=== PATIENT | female | born 1980 | race Caucasian/White ===

== ENCOUNTER 2021-01-25 09:14 | Outpatient (CLI) | payer OTHER, SELFPAY | END 2021-01-25 09:15 | disposition home or self-care (01) | LOC: ANHBWCAUD 09:17 | PROVIDERS: PCP Family Medicine; Visit Provider Family Medicine | DX: H90.3 Sensorineural hearing loss, bilateral (principal) | CPT/HCPCS: 92557; 92567 ==

== ENCOUNTER 2021-03-15 10:00 | Outpatient (RCR) | payer OTHER, SELFPAY | END 2021-05-30 23:59 | disposition home or self-care (01) | LOC: ANHBWCAUD 10:00 | PROVIDERS: PCP Family Medicine; Visit Provider Family Medicine | DX: Z46.1 Encounter for fitting and adjustment of hearing aid (principal) | CPT/HCPCS: 99199; V5160; V5261 ==

== ENCOUNTER 2022-01-15 07:11 | Outpatient (RCR) | payer OTHER, SELFPAY | END 2022-04-15 23:59 | disposition home or self-care (01) | LOC: ANHBWCAUD 07:11 | PROVIDERS: PCP Family Medicine; Visit Provider Family Medicine | DX: Z46.1 Encounter for fitting and adjustment of hearing aid (principal) | CPT/HCPCS: 99199 ==

== ENCOUNTER 2023-02-12 08:55 | Outpatient (CLI) | payer OTHER, SELFPAY | END 2023-02-12 08:56 | disposition home or self-care (01) | LOC: ANHBWCAUD 08:56 | PROVIDERS: PCP Family Medicine; Visit Provider Family Medicine | DX: H90.3 Sensorineural hearing loss, bilateral (principal) | CPT/HCPCS: 92557; 92567 ==

== ENCOUNTER 2024-06-06 16:44 | Emergency (ER) | payer OTHER, SELFPAY ==
[2024-06-06 16:52] VITALS: BP 147/97; PULSE 139; RESP 20; TEMP 36.5; O2SAT 100
--- NOTE | 2024-06-06 17:10 | ED.SKABFB ---
HPI - Skin/Abscess/Foreign Bdy General Stated complaint: lump on right chest/fever/headache History of Present Illness HPI narrative: Patient presents for evaluation of increased confusion and abscess to right chest area. Patient states 9 days ago she was started on cephalexin and Bactrim by her primary care provider diagnosed with an abscess to her right chest area. Patient states that area has gotten larger in size and more painful to touch. Patient states she has been running a fever at home and takes Tylenol routinely to keep her fever normal. Sister accompanies patient in states patient has had increased confusion and fever at home. Patient states she did mistakenly forget to take her medication this morning that she takes on a routine basis for bipolar. Patient is very upset that no one has listen to her and her complaints patient has been evaluated [facility] emergency room and [facility] Emergency Room for same symptoms. Patient states she was asked to leave from [facility] ER that there were no bid beds available for admission. Says patient tearful at this urgent care visit states she is confused feels diaphoretic and clammy at times. Sister accompanies patient states she is very concerned for her sister's well-being. Related Data Allergies Allergy/AdvReac Type Severity Reaction Status Date / Time bee venom protein (honey bee) Allergy Severe Anaphylactic Verified 06/06/24 17:08 [bees] Shock iohexol Allergy Unknown Verified 06/06/24 17:18 [From contrast - CT, X-RAY] amoxicillin AdvReac Abdominal Verified 06/06/24 17:09 Pain Review of Systems Review of Systems: CONSTITUTIONAL: Denies fever, chills, or sweats. EYES: Denies visual changes, redness, or discharge. ENT: Denies rhinorrhea, congestion, sore throat, or otalgia. CARDIOVASCULAR: Denies chest pain, palpitations, or edema. RESPIRATORY: Denies cough or dyspnea. Patient states she feels short of breath at times has increased pain with inspiration patient reports increasing size in tenderness to area to right chest area. No drainage or no streaking GASTROINTESTINAL: Denies abdominal pain, nausea, vomiting, or diarrhea. GENITOURINARY: Denies dysuria or hematuria. SKIN: Denies rash or itching. MUSCULOSKELETAL: Denies back pain, joint pain, or myalgia. NEUROLOGIC: Denies headache, numbness, or weakness. PSYCHIATRIC: Denies anxiety or depression. PMFSH Comments At time of signature, agree with nursing past medical, surgical, social and family history. There is no relevant family history pertinent to the presenting complaint Exam Narrative: GENERAL: Well-appearing, well-nourished, and in no acute distress. HEAD: Normocephalic, atraumatic. EYES: PERRLA and EOMI. ENT: Nares clear, no rhinorrhea or epistaxis. Mucous membranes moist. NECK: Supple. CHEST: Clear to auscultation. No respiratory distress. Lungs clear no wheezing noted no rales or rhonchi noted respirations even and nonlabored patient does report pain with inspiration on the right side right upper lung base HEART: Regular rate and rhythm. No murmur heard. Normal peripheral pulses. ABDOMEN: Soft, nontender, nondistended, normal active bowel sounds. EXTREMITIES: Normal range of motion. No edema. SKIN: Warm, dry, no rash. Right chest area 3 cm wide by 2 cm area patient states is tender to touch slight swelling to area. No redness noted not warm to touch no streaking no drainage noted. NEURO: No focal deficits. Alert and oriented x3. Summer Coma Scale Eye Opening: Spontaneous 4 Summer Coma Scale Motor: Obeys Commands 6 Summer Coma Scale Verbal: Oriented 5 [place] Coma Scale Total 15 Course Course Level of Care: Express Care Visit Vital Signs Vital signs: Vital Signs Temperature 36.5 C 06/06/24 16:52 Pulse Rate 139 H 06/06/24 16:52 Respiratory Rate 20 06/06/24 16:52 Blood Pressure 147/97 H 06/06/24 16:52 Pulse Oximetry 100 06/06/24 16:52 Oxygen Delivery
[2024-06-06 17:20] VITALS: BP 147/97; PULSE 139; RESP 20; TEMP 36.5; O2SAT 100
== END 2024-06-06 17:10 | disposition short-term general hospital (02) ==
PROVIDERS: Emergency Provider Nurse Practitioner Family; PCP Family Medicine
DX: R41.0 Disorientation, unspecified (principal); R50.9 Fever, unspecified; R07.1 Chest pain on breathing
CPT/HCPCS: 99213; G0463

== ENCOUNTER 2024-06-06 18:00 | Emergency (ER) | payer OTHER, SELFPAY ==
--- NOTE | ~2024-06-06 | CT_ITS ---
EXAMINATION: CT brain wo con DATE: 06/06/2024 21:46 INDICATION: Altered mental status TECHNIQUE: Computed tomography (CT) of the head was performed without intravenous contrast. The mA wa s adjusted according to patient size. Iterative reconstruction technique was employed. Exam dose: 60 5.33 mGy-cm total exam DLP. COMPARISON: None FINDINGS: No intracranial mass lesion or hemorrhage or cerebrovascular accident. No midline shift or mass effect. Normal reddy-white matter differentiation. Normal ventricular size. No subdural or epidural hematoma. The orbital contents are unremarkable. No fracture or bone destruction of the cranial vault. Nearly complete opacification of the left maxillary sinus. The remaining paranasal sinuses and mastoi d air cells are normally developed and aerated. IMPRESSION: No significant intracranial abnormality Nearly complete opacification of left maxillary sinus Reviewed, dictated and finalized at [facility] Reviewed, dictated and finalized at [facility].
--- NOTE | ~2024-06-06 | CT_ITS ---
EXAMINATION: CT chest abdomen pelvis wo con DATE: 06/06/2024 21:47 INDICATION: Chest wall swelling, fever TECHNIQUE: Computed tomography (CT) of the chest, abdomen, and pelvis was performed without intraveno us contrast. Automated exposure control and iterative reconstruction technique were employed. Exam do se: 1802.71 mGy-cm total exam DLP. COMPARISON: None FINDINGS: CHEST CT: There is asymmetric soft tissue swelling of the right pectoralis major and pectoralis minor muscles w ith subcutaneous emphysema of the pectoralis minor muscle. There is fat stranding around the thrombus muscles. Normal heart size. No pericardial or pleural effusion. No hilar or mediastinal mass lesion or lymphad enopathy. No thoracic aortic aneurysm. Right foramen of [place] fat-containing hernia. No pulmonary infiltrate or consolidation. ABDOMEN/PELVIS CT: The liver, gallbladder, bile ducts, spleen, pancreas, pancreatic duct, and adrenal glands and kidneys are unremarkable. No urinary tract calculus or hydroureteronephrosis. The urinary bladder, uterus an d adnexal areas are unremarkable except for retroverted uterus. Normal caliber of the abdominal aorta. No intraperitoneal or retroperitoneal or pelvic mass lesion or adenopathy or ascites. A metallic foreign body of undetermined significance is situated between the posterior body of the ut erus and the distal sigmoid colon. Occasional diverticula of the colon; no CT evidence of diverticulitis. No bowel obstruction or intraperitoneal free air. Small fat-containing umbilical hernia. Old right rib fractures. No suspicious osteolytic or osteoblastic lesions are noted. IMPRESSION: Asymmetric soft tissue swelling of the right pectoralis major and pectoralis minor muscl es and subcutaneous emphysema of the right pectoralis minor muscle, with surrounding fat stranding, s uggesting infection Mild colonic diverticulosis; no evidence of diverticulitis Reviewed, dictated and finalized at [facility] Reviewed, dictated and finalized at [facility]. IMPRESSION: Asymmetric soft tissue swelling of the right pectoralis major and pectoralis minor muscles and subcutaneous emphysema of the right pectoralis min or muscle, with surrounding fat stranding, suggesting infection Mild colonic diverticulosis; no evidence of diverticulitis
[2024-06-06 18:19] VITALS: BP 144/83; PULSE 137; RESP 18; TEMP 36.4; O2SAT 99
--- NOTE | 2024-06-06 18:21 | ECG_ITS ---
Test Date: 2024-06-06 18:38:58 Measurements Intervals [place] Rate: 121 P: 41 MS: 100 QRS: 59 QRSD: 93 T: 57 QT: 292 QTc: 415 Interpretive Statements SINUS TACHYCARDIA WITH SHORT MS INTERVAL BASELINE ARTIFACT- I, II, III, AVR, AVL, AVF, V1 ABNORMAL ECG No previous ECG available for comparison Electronically Signed On 06-06-2024 19:30:09 CDT by Darvin May D.O.
[2024-06-06 18:41] LABS: Basophils Absolute Auto 0.1 K/mm3 (0.0-0.1); Basophils Percent Auto 0.6 % (0.2-1.2); Eosinophils Absolute Auto 0.3 K/mm3 (0-0.3); Eosinophils Percent Auto 1.2 % (0-4.4); Hematocrit 37.1 % (37.0-47.0); Hemoglobin 12.2 g/dL (12.0-15.0); Immature Granulocyte Absolute 0.86 K/mm3 (0.00-0.031); Immature Granulocyte Percent A 3.5 % (0-0.5); Lymphocytes Absolute Auto 2.86 K/mm3 (0.9-3.2); Lymphocytes Percent Auto 11.6 % (18.3-44.2); Mean Corpuscular HGB Conc 32.9 g/dl (32-36); Mean Corpuscular Hemoglobin 32.9 pg (26-34); Mean Platelet Volume 8.3 fl (7.4-10.4); Monocytes Percent Auto 8.1 % (2.6-8.5); Neutrophils Absolute Auto 18.4 K/mm3 (1.3-6.7); Platelet Count Result 862 k/mm3 (150-375); Red Blood Count 3.71 M/mm3 (4.2-5.4); Red Cell Distribution Width 17.2 % (11.5-14.5); White Blood Count 24.6 K/mm3 (4.5-10.0)
[2024-06-06 18:44] LABS: BEDSIDEPREGUCG Negative (Negative)
[2024-06-06 18:47] LABS: Add Urine Microscopic? NO; Appearance Urine Clear (Clear); Bilirubin Urine Negative (Negative); Blood Urine Negative (Negative); Color Urine Yellow (Yellow); Glucose Urine UA Negative (Negative); Ketones Urine Negative (Negative); Leukocyte Esterase Ur Negative LEU/UL (Negative); Nitrate Urine Negative (Negative); Protein Urine Negative (Negative); Specific Grav Ur 1.004 (1.001-1.035); Urobilinogen Urine 0.2 mg/dL (<2.0); pH Urine 6.5 (5.0-9.0)
[2024-06-06 18:51] LABS: Prothrombin Time 13.8 Seconds (11.1-14.7)
[2024-06-06 18:52] LABS: Partial Thromboplastin Time 47.5 Seconds (22.3-36.8)
[2024-06-06 18:53] LABS: Alanine Aminotransferase 22 U/L (6-35); Albumin Level 3.7 g/dL (3.5-5.1); Alkaline Phosphatase 125 U/L (38-126); Anion Gap 10 mmol/L (4-12); Aspartate Amino Transferase 30 U/L (14-36); Bilirubin,Total 0.3 mg/dL (0.2-1.3); Blood Urea Nitrogen 10 mg/dL (7-17); Calcium 9.8 mg/dL (8.4-10.2); Carbon Dioxide 23 mmol/L (22-30); Chloride 100 mmol/L (98-107); Estimated CRCL calculation 87 ml/min; Estimated Glomerular Filt Rate > 60; Glucose 92 mg/dL (65-110); Sodium 133 mmol/L (137-145)
[2024-06-06] MEDS: SODIUM CHLORIDE 0.9% IV 1,000 ML 999 ML IV CONT (20:58)
[2024-06-06] MEDS: ONDANSETRON INJ 4 MG/2 ML VIAL IV PUSH (20:59)
[2024-06-06] MEDS: MORPHINE SULFATE (*CRX) 4 MG/ML INJ IV PUSH (20:59)
[2024-06-06 21:02] LABS: Ethanol < 10 mg/dL (<10)
[2024-06-06 21:15] LABS: Troponin I < 0.012 ng/mL (0.000-0.034)
[2024-06-06 21:17] LABS: Amphetamine Screen Urine Negative (Negative); Barbiturate Screen Urine Negative (Negative); Benzodiazepines Screen Urine Negative (Negative); Cannabinoid Screen Urine Positive (Negative); Cocaine Screen Urine Negative (Negative); Methadone Screen Urine Negative (Negative); Opiate Screen Urine Negative (Negative); Phencyclidine Screen Urine Negative (Negative)
[2024-06-06 21:19] LABS: CRP 19.4 mg/dL (<1.0); Erythrocyte Sedimentation Rate 63 mm/hr (0-20); Lipase 48 U/L (23-300); Magnesium 2.2 mg/dL (1.6-2.3)
[2024-06-06 21:19] LABS: Procalcitonin 0.1 ng/mL
[2024-06-06 21:23] VITALS: PULSE 115; O2SAT 98
--- NOTE | 2024-06-06 21:26 | PC.NURSE ---
Large raised area to right upper chest that extends to right upper breast. No open areas noted, slight tenderness upon palp.
[2024-06-06] MEDS: NICOTINE (*PBKC) 21 MG PATCH 1 PATCH TRANSDERM (21:56)
[2024-06-06 21:57] VITALS: BP 145/85; PULSE 107; RESP 20; O2SAT 97
--- NOTE | 2024-06-06 22:14 | ED.GENADULT ---
HPI - General Adult General Chief complaint: Altered Mental Status Stated complaint: Lump on chest Time Seen by Provider: 06/06/24 20:21 History of Present Illness HPI narrative: Patient is a 43-year-old female who presents emergency department with chief complaint not feeling well patient reports that she was in the hospital and Javad recently had an IV infiltrate in her left upper extremity and reports that she has noticed a area of swelling on her anterior chest patient reports she saw her primary care provider he started her on Keflex and Bactrim the patient reports that the area is continued to swell she has been running fevers and not feeling well the patient states she does feels a little off the patient states [facility] studies done but never got back into her room and left without completing service is at that facility patient cited to come in today after she has noticed that the anterior chest wall continues to swell Related Data Home Medications Medication Instructions Recorded Confirmed albuterol sulfate 1.25 mg/3 mL 1.25 mg inhalation Q4H 06/06/24 06/06/24 solution for nebulization albuterol sulfate 90 mcg/actuation 2 puff inhalation QID PRN sob 06/06/24 06/06/24 aerosol inhaler budesonide-formoterol HFA 160 2 puff inhalation BID 06/06/24 06/06/24 mcg-4.5 mcg/actuation aerosol inhaler (Symbicort) buspirone 10 mg tablet 10 mg PO BID 06/06/24 06/06/24 cephalexin 500 mg tablet 500 mg PO Q6H 06/06/24 06/06/24 chlordiazepoxide HCl 25 mg capsule See Rx Instructions .Route .COMPLEX 06/06/24 06/06/24 cyclobenzaprine 10 mg tablet See Rx Instructions .Route .COMPLEX 06/06/24 06/06/24 dupilumab 300 mg/2 mL subcutaneous See Rx Instructions .Route .COMPLEX 06/06/24 06/06/24 pen injector (Dupixent) ergocalciferol (vitamin D2) 1,250 1,250 mcg PO WEEKLY 06/06/24 06/06/24 mcg (50,000 unit) capsule fluticasone propionate 50 1 spray intranasal BID 06/06/24 06/06/24 mcg/actuation nasal spray,suspension folic acid 1 mg tablet 1 mg PO DAILY 06/06/24 06/06/24 gabapentin 300 mg capsule 300 mg PO TID 06/06/24 06/06/24 lamotrigine 150 mg tablet 150 mg PO HS 06/06/24 06/06/24 meloxicam 15 mg tablet 15 mg PO DAILY 06/06/24 06/06/24 paroxetine HCl 40 mg tablet 40 mg PO DAILY 06/06/24 06/06/24 potassium chloride 20 mEq 20 meq PO BID 06/06/24 06/06/24 tablet,extended release(part/cryst) (Klor-Con M) sennosides 8.6 mg tablet (senna) 8.6 mg PO HS PRN Constipation 06/06/24 06/06/24 sulfamethoxazole 800 1 tablet PO BID 06/06/24 06/06/24 mg-trimethoprim 160 mg tablet ziprasidone HCl 80 mg capsule 80 mg PO BID 06/06/24 06/06/24 Allergies Allergy/AdvReac Type Severity Reaction Status Date / Time bee venom protein (honey bee) Allergy Severe Anaphylactic Verified 06/06/24 18:03 [bees] Shock iohexol Allergy Hives Verified 06/06/24 18:03 [From contrast - CT, X-RAY] amoxicillin AdvReac Abdominal Verified 06/06/24 18:03 Pain Review of Systems Review of Systems: A 10 system review of systems was completed on the patient and is negative except for what is stated in the HPI. Nursing and ancillary documentation was reviewed. Exam Narrative: GENERAL: Well-appearing, well-nourished, and in no acute distress. HEAD: Normocephalic, atraumatic. EYES: PERRLA and EOMI. ENT: Nares clear, no rhinorrhea or epistaxis. Mucous membranes moist. NECK: Supple. CHEST: Clear to auscultation. No respiratory distress. Tenderness to palpation in the anterior chest wall on the right with swelling present no crepitance present no necrotic tissue HEART: Regular rate and rhythm. No murmur heard. Normal peripheral pulses. ABDOMEN: Soft, nontender, nondistended, normal active bowel sounds. EXTREMITIES: Normal range of motion. No edema. SKIN: Warm, dry, no rash. NEURO: No focal deficits. Alert and oriented x3. PSYCH: Normal mood and affect. Course Vital Signs Vital signs: Vital Signs
[2024-06-06] MEDS: CLINDAMYCIN 900 MG/D5W 50 ML 900 MG/50 ML PIGGYBACK 50 MG IVPB (22:33)
--- NOTE | 2024-06-06 22:33 | PC.NURSE ---
Dr. Patricia at bedside informing pt she will need transferred to larger facility. Pt requesting [facility]
[2024-06-06] MEDS: HYDROmorphone HCL INJ (*CRX) 1 MG/ML SYR IV PUSH (23:09)
[2024-06-06] MEDS: MEROPENEM 1 GM/NS 100 ML 1 GM/100 ML BAG IVPB (23:15)
[2024-06-06 23:23] VITALS: BP 133/89; PULSE 121; RESP 16; TEMP 37; O2SAT 95
[2024-06-06 23:25] VITALS: BP 133/89; PULSE 122; RESP 21; O2SAT 97
--- NOTE | 2024-06-06 23:25 | PC.NURSE ---
Pt c/o muscle spasm to right posterior shoulder & pain 8. Medicated as ordered & ice pack to posterior shoulder.
[2024-06-06 23:31] VITALS: BP 129/99; PULSE 122; RESP 13; O2SAT 96
[2024-06-07] MEDS: VANCOMYCIN 1,250 MG/NS 250 ML 1,250 MG/250 ML BAG 166.67 MG IVPB (00:07)
[2024-06-07] MEDS: HYDROmorphone HCL INJ (*CRX) 1 MG/ML SYR IV PUSH (00:44)
== END 2024-06-07 00:57 | disposition short-term general hospital (02) ==
PROVIDERS: Emergency Medicine; Emergency Provider Emergency Medicine; PCP Family Medicine
DX: L02.213 Cutaneous abscess of chest wall (principal); D72.829 Elevated white blood cell count, unspecified; Z79.899 Other long term (current) drug therapy; R00.0 Tachycardia, unspecified; K57.90 Diverticulosis of intestine, part unspecified, without perforation or abscess without bleeding
CPT/HCPCS: 36415; 70450; 71250; 74176; 80053; 80307; 81003; 81025; 83605; 83690; 83735; 84145; 84484; 85025; 85610; 85652; 85730; 86140; 87040; 93005; 96361; 96365; 96367; 96375; 99285; A9270; J1170; J2185; J2270; J2405; J3370; J7030

== ENCOUNTER 2024-08-05 15:00 | Emergency (ER) | payer OTHER, SELFPAY ==
--- NOTE | ~2024-08-05 | CT_ITS ---
EXAMINATION: CT chest abdomen pelvis wo con DATE: 08/05/2024 21:11 INDICATION: Right chest swelling and erythema. TECHNIQUE: Computed tomography (CT) of the chest, abdomen, and pelvis was performed without intraveno us contrast. Automated exposure control and iterative reconstruction technique were employed. The dos e-length product was 1337.02 mGy-cm. COMPARISON: CT chest, abdomen, and pelvis 06/06/2024 FINDINGS: CHEST CT: There is mild emphysema. There is mild scarring at the lung apices. No pleural effusion. The heart si ze is normal. No pericardial effusion. There is soft tissue swelling around right sternoclavicular andrés int. There are no other erosions of head of right clavicle. There is thickening and adjacent right pe ctoralis major muscle with surrounding fat stranding. ABDOMEN/PELVIS CT: The liver, gallbladder, spleen, pancreas, adrenal glands, and kidneys are normal. There is no urolith iasis. There is diverticulosis of the colon without evidence of diverticulitis. There are no dilated loops of bowel. There are changes of appendectomy. There are no pathologically enlarged lymph nodes. There is no free intraperitoneal fluid. IMPRESSION: 1. Septic arthritis of right sternoclavicular joint and myositis involving right pectoralis major. Reviewed, dictated and finalized at location A. IMPRESSION: 1. Septic arthritis of right sternoclavicular joint and myositis involving righ t pectoralis major.
[2024-08-05 15:38] VITALS: BP 116/78; PULSE 114; RESP 20; TEMP 36.3; O2SAT 98
[2024-08-05 18:53] VITALS: BP 107/71; PULSE 89; RESP 18; TEMP 36.9; O2SAT 100
--- NOTE | 2024-08-05 20:29 | ED_ITS ---
HPI - General Adult General Chief complaint: Unspecified <BAILEY Canchola Last Filed: 08/07/24 02:14> Stated complaint: LUMPS ON MY CHEST <BAILEY Canchola Last Filed: 08/07/24 02:14> Time Seen by Provider: 08/05/24 20:12 <BAILEY Canchola Last Filed: 08/07/24 02:14> Source: patient and old records reviewed <BAILEY Canchola Last Filed: 08/07/24 02:14> Mode of arrival: ambulatory <BAILEY Canchola Last Filed: 08/07/24 02:14> Limitations: no limitations <BAILEY Canchola Last Filed: 08/07/24 02:14> History of Present Illness HPI narrative: Patient is a 43-year-old female who presents the ED with report of swelling to her right chest. Patient reports she was seen in the ED here in May and diagnosed with a infection within her chest wall muscles. She was transferred to [facility] at that time. She underwent surgical debridement and had a chest drainage tube. Diagnosed with MRSA. States she had been on Bactrim for approximately 2 months, but has recently finished this and been cleared by her surgeon at [facility]. States over the past 4-5 days, she has had increased swelling and pain throughout her right anterior chest wall, which feels similar to what she experienced previously. Reports she has had intermittent fevers over the last few days. Has been taking Tylenol for the pain without much improvement. Denies shortness of breath. <BAILEY Canchola Last Filed: 08/07/24 02:14> Related Data Home medications: Home Medications Medication Instructions Recorded Confirmed albuterol sulfate 1.25 mg/3 mL 1.25 mg inhalation Q4H 06/06/24 06/06/24 solution for nebulization albuterol sulfate 90 mcg/actuation 2 puff inhalation QID PRN sob 06/06/24 08/06/24 aerosol inhaler budesonide-formoterol HFA 160 2 puff inhalation BID 06/06/24 08/06/24 mcg-4.5 mcg/actuation aerosol inhaler (Symbicort) buspirone 10 mg tablet 15 mg PO BID 06/06/24 08/06/24 cephalexin 500 mg tablet 500 mg PO Q6H 06/06/24 06/06/24 chlordiazepoxide HCl 25 mg capsule See Rx Instructions .Route .COMPLEX 06/06/24 06/06/24 cyclobenzaprine 10 mg tablet 10 mg PO TID PRN Muscle Spasm 06/06/24 08/06/24 dupilumab 300 mg/2 mL subcutaneous See Rx Instructions .Route .COMPLEX 06/06/24 08/06/24 pen injector (ZipzoomixZenDoc) ergocalciferol (vitamin D2) 1,250 1,250 mcg PO WEEKLY 06/06/24 06/06/24 mcg (50,000 unit) capsule fluticasone propionate 50 1 spray intranasal BID 06/06/24 06/06/24 mcg/actuation nasal spray,suspension folic acid 1 mg tablet 1 mg PO DAILY 06/06/24 06/06/24 gabapentin 300 mg capsule 300 mg PO TID 06/06/24 08/06/24 lamotrigine 150 mg tablet 150 mg PO HS 06/06/24 08/06/24 meloxicam 15 mg tablet 15 mg PO HS 06/06/24 08/06/24 paroxetine HCl 40 mg tablet 40 mg PO DAILY 06/06/24 08/06/24 potassium chloride 20 mEq 20 meq PO BID 06/06/24 06/06/24 tablet,extended release(part/cryst) (Klor-Con M) sennosides 8.6 mg tablet (senna) 8.6 mg PO HS PRN Constipation 06/06/24 06/06/24 sulfamethoxazole 800 1 tablet PO BID 06/06/24 06/06/24 mg-trimethoprim 160 mg tablet ziprasidone HCl 80 mg capsule 80 mg PO BID 06/06/24 08/06/24 budesonide-formoterol HFA 160 inhalation 08/06/24 mcg-4.5 mcg/actuation aerosol inhaler (Symbicort) lidocaine 5 % topical patch patch 08/06/24 <Akanksha Jackson PA-C - Last Filed: 08/07/24 02:14> Allergies/adverse reactions: Allergies Allergy/AdvReac Type Severity Reaction Status Date / Time bee venom protein (honey bee) Allergy Severe Anaphylactic Verified 08/05/24 23:56 [bees] Shock iohexol Allergy Hives Verified 08/05/24 23:56 [From contrast - CT, X-RAY] amoxicillin AdvReac Abdominal Verified 08/05/24 23:56 Pain <Akanksha Jackson PA-C - Last Filed: 08/07/24 02:14> Review of Systems Review of Systems: All systems reviewed & are unremarkable except as noted in HPI. <Akanksha Jackson PA-C - Last Filed: 08/07/24 02:14> All systems reviewed & are unremarkable except as noted in HPI and below <Akanksha Jackson PA-C - Last Filed: 08/07/24 02:14> Exam Narrative: GENERAL: Well appearing, obese with BMI of 35.8, non-toxic, in no acute distress. HEAD: Normocephalic, atraumatic. RESPIRATORY: Airway patent, respirations nonlabored. Clear to auscultation bilaterally, no rales, rhonchi, wheezing. No focal lung sounds. CARDIOVASCULAR: Regular rate and rhythm without murmurs, rubs, or gallops. MUSCULOSKELETAL: Moves all extremities. No gross deformities. Mild subcutaneous swelling and erythema noted to R anterior chest wall with focal TTP in this region. No palpable induration or fluctuance. SKIN: Warm, dry, normal color. NEURO: A&O X3. Speech clear. No ataxic movements. PSYCHIATRIC: Appropriate mood and affect. Normal interaction. <Akanksha Jackson PA-C - Last Filed: 08/07/24 02:14> Course PACK PULLER/PA Physician Supervision This visit was performed by both a physician and an APC. I performed all aspects of the MDM as documented. <Kleber Gmoez MD - Last Filed: 08/06/24 04:24> Vital Signs Vital signs: Vital Signs Temperature 97.4 F L 08/05/24 15:38 Pulse Rate 114 H 08/05/24 15:38 Respiratory Rate 20 08/05/24 15:38 Blood Pressure 116/78 08/05/24 15:38 Pulse Oximetry 98 08/05/24 15:38 Oxygen Delivery Room Air 08/05/24 15:38 Temperature 99.8 F H 08/06/24 23:21 Pulse Rate 98 08/07/24 02:08 Respiratory Rate 17 08/07/24 02:08 Blood Pressure 150/81 H 08/07/24 02:08 Pulse Oximetry 94 08/07/24 02:08 Oxygen Delivery Room Air 08/05/24 15:38 <Akanksha Jackson PA-C - Last Filed: 08/07/24 02:14> Vital Signs Temperature 97.4 F L 08/05/24 15:38 Pulse Rate 114 H 08/05/24 15:38 Respiratory Rate 20 08/05/24 15:38 Blood Pressure 116/78 08/05/24 15:38 Pulse Oximetry 98 08/05/24 15:38 Oxygen Delivery Room Air 08/05/24 15:38 Temperature 99.8 F H 08/06/24 23:21 Pulse Rate 98 08/07/24 02:08 Respiratory Rate 17 08/07/24 02:08 Blood Pressure 150/81 H 08/07/24 02:08 Pulse Oximetry 94 08/07/24 02:08 Oxygen Delivery Room Air 08/05/24 15:38 <Kleber Gomez MD - Last Filed: 08/06/24 04:24> Medical Decision Making MDM Narrative Medical decision making narrative: Patient presented to ED with swelling and pain to her right-sided chest w all, history of recent intramuscular chest infection, MRSA, required surgical debridement at [facility]. Patient tachycardic upon arrival. Afebrile here. Will obtain lab and imaging to evaluate for recurrent infection. CBC with white blood cell count of 17.7. CMP unremarkable. Inflammatory markers are markedly elevated. Lactic acid WNL at 0.7. Repeat CT scan of the chest showing septic arthritis of the right sternoclavicular joint. Also showing myositis of right pectoralis major. Consistent with reported symptoms and clinical exam. Patient was recently seen for this at [facility]. Unable to be previous culture results. Will transfer for further care/ID given ongoing infection. Vanc and Zosyn started in the ED. Blood cultures were obtained. Discussed case with Dr. Ferrara, trauma speciality at [facility] (trauma team performed drainage prior), accepted patient for transfer/admission to floor pending bed placement. Patient in agreement with plan and need for transfer/admission. Care signed out to Dr. Gomez at shift change pending bed placement availability at [facility]. <Akanksha Jackson PA-C - Last Filed: 08/07/24 02:14> Medical Records Medical records reviewed: Yes I reviewed the external patient's medical records. <Akanksha Jackson PA-C - Last Filed: 08/07/24 02:14> Vital Signs Vital Signs: Vital Signs Temperature 97.4 F L 08/05/24 15:38 Pulse Rate 114 H 08/05/24 15:38 Respiratory Rate 20 08/05/24 15:38 Blood Pressure 116/78 08/05/24 15:38 Pulse Oximetry 98 08/05/24 15:38 Oxygen Delivery Room Air 08/05/24 15:38 Temperature 99.8 F H 08/06/24 23:21 Pulse Rate 98 08/07/24 02:08 Respiratory Rate 17 08/07/24 02:08 Blood Pressure 150/81 H 08/07/24 02:08 Pulse Oximetry 94 08/07/24 02:08 Oxygen Delivery Room Air 08/05/24 15:38 <Akanksha Jackson PA-C - Last Filed: 08/07/24 02:14> Vital Signs Temperature 97.4 F L 08/05/24 15:38 Pulse Rate 114 H 08/05/24 15:38 Respiratory Rate 20 08/05/24 15:38 Blood Pressure 116/78 08/05/24 15:38 Pulse Oximetry 98 08/05/24 15:38 Oxygen Delivery Room Air 08/05/24 15:38 Temperature 99.8 F H 08/06/24 23:21 Pulse Rate 98 08/07/24 02:08 Respiratory Rate 17 08/07/24 02:08 Blood Pressure 150/81 H 08/07/24 02:08 Pulse Oximetry 94 08/07/24 02:08 Oxygen Delivery Room Air 08/05/24 15:38 <Kleber Gomez MD - Last Filed: 08/06/24 04:24> Lab Data Lab results reviewed: Yes I reviewed the patient's lab results. <Akanksha Jackson PA-C - Last Filed: 08/07/24 02:14> Result diagrams: 08/05/24 20:59 08/06/24 06:34 <Akanksha Jackson PA-C - Last Filed: 08/07/24 02:14> Labs: Lab Results 08/05/24 08/05/24 08/06/24 Range/Units 20:59 21:25 06:34 WBC 17.7 H (4.5-10.0) K/mm3 RBC 3.81 L (4.2-5.4) M/mm3 Hgb 12.1 (12.0-15.0) g/dL Hct 36.6 L (37.0-47.0) % MCV 96.1 (80-100) fl MCH 31.8 (26-34) pg MCHC 33.1 (32-36) g/dl RDW 15.2 H (11.5-14.5) % Plt Count 474 H (150-375) k/mm3 MPV 9.3 (7.4-10.4) fl Immature Gran % (Auto) 0.6 H (0-0.5) % Neut % (Auto) 69.5 (45.5-73.1) % Lymph % (Auto) 15.9 L (18.3-44.2) % [place] % (Auto) 12.4 H (2.6-8.5) % Eos % (Auto) 1.2 (0-4.4) % Baso % (Auto) 0.4 (0.2-1.2) % Lymph # (Auto) 2.81 (0.9-3.2) K/mm3 [place] # (Auto) 2.2 H (0.1-0.6) K/mm3 Eos # (Auto) 0.2 (0-0.3) K/mm3 Baso # (Auto) 0.1 (0.0-0.1) K/mm3 Abs Immat Gran (auto) 0.10 H (0.00-0.031) K/mm3 Absolute Neuts (auto) 12.3 H (1.3-6.7) K/mm3 Absolute Nucleated RBC 0.000 (0.0-0.012) K/mm3 Nucleated RBC % 0.0 (0.0-0.2) % ESR 65 H (0-20) mm/hr Sodium 133 L (137-145) mmol/L Potassium 4.2 (3.4-5.0) mmol/L Chloride 102 (98-107) mmol/L Carbon Dioxide 26 (22-30) mmol/L Anion Gap 5 (4-12) mmol/L BUN 11 (7-17) mg/dL Creatinine 0.70 0.70 (0.7-1.0) mg/dL Estim Creat Clear Calc 98 98 ml/min Estimated GFR > 60 > 60 (59 - ) Glucose 95 (65-110) mg/dL Lactic Acid 0.7 (0.7-2.0) mmol/L Calcium 9.1 (8.4-10.2) mg/dL Total Bilirubin 0.6 (0.2-1.3) mg/dL AST 30 (14-36) U/L ALT 15 (6-35) U/L Alkaline Phosphatase 90 (38-126) U/L C-Reactive Protein 18.7 H (<1.0) mg/dL Total Protein 8.0 (6.3-8.2) g/dL Albumin 4.2 (3.5-5.1) g/dL <Akanksha Jackson PA-C - Last Filed: 08/07/24 02:14> Lab Results 08/05/24 08/05/24 08/06/24 Range/Units 20:59 21:25 06:34 WBC 17.7 H (4.5-10.0) K/mm3 RBC 3.81 L (4.2-5.4) M/mm3 Hgb 12.1 (12.0-15.0) g/dL Hct 36.6 L (37.0-47.0) % MCV 96.1 (80-100) fl MCH 31.8 (26-34) pg MCHC 33.1 (32-36) g/dl RDW 15.2 H (11.5-14.5) % Plt Count 474 H (150-375) k/mm3 MPV 9.3 (7.4-10.4) fl Immature Gran % (Auto) 0.6 H (0-0.5) % Neut % (Auto) 69.5 (45.5-73.1) % Lymph % (Auto) 15.9 L (18.3-44.2) % [place] % (Auto) 12.4 H (2.6-8.5) % Eos % (Auto) 1.2 (0-4.4) % Baso % (Auto) 0.4 (0.2-1.2) % Lymph # (Auto) 2.81 (0.9-3.2) K/mm3 [place] # (Auto) 2.2 H (0.1-0.6) K/mm3 Eos # (Auto) 0.2 (0-0.3) K/mm3 Baso # (Auto) 0.1 (0.0-0.1) K/mm3 Abs Immat Gran (auto) 0.10 H (0.00-0.031) K/mm3 Absolute Neuts (auto) 12.3 H (1.3-6.7) K/mm3 Absolute Nucleated RBC 0.000 (0.0-0.012) K/mm3 Nucleated RBC % 0.0 (0.0-0.2) % ESR 65 H (0-20) mm/hr Sodium 133 L (137-145) mmol/L Potassium 4.2 (3.4-5.0) mmol/L Chloride 102 (98-107) mmol/L Carbon Dioxide 26 (22-30) mmol/L Anion Gap 5 (4-12) mmol/L BUN 11 (7-17) mg/dL Creatinine 0.70 0.70 (0.7-1.0) mg/dL Estim Creat Clear Calc 98 98 ml/min Estimated GFR > 60 > 60 (59 - ) Glucose 95 (65-110) mg/dL Lactic Acid 0.7 (0.7-2.0) mmol/L Calcium 9.1 (8.4-10.2) mg/dL Total Bilirubin 0.6 (0.2-1.3) mg/dL AST 30 (14-36) U/L ALT 15 (6-35) U/L Alkaline Phosphatase 90 (38-126) U/L C-Reactive Protein 18.7 H (<1.0) mg/dL Total Protein 8.0 (6.3-8.2) g/dL Albumin 4.2 (3.5-5.1) g/dL <Kleber Gomez MD - Last Filed: 08/06/24 04:24> Imaging Data Attestation: I personally reviewed and interpreted this imaging study as follows: <Akanksha Jackson PA-C - Last Filed: 08/07/24 02:14> Radiologist's impression: ITS Impressions Chest/Abdomen/Pelvis CT 08/05/24 21:15 IMPRESSION: 1. Septic arthritis of right sternoclavicular joint and myositis involving right pectoralis major. <BAILEY Canchola Last Filed: 08/07/24 02:14> Discharge Plan Discharge Clinical Impression: Septic arthritis of right sternoclavicular joint Myositis Qualifiers: Myositis type: infective Myositis location: other site Qualified Code(s): M60.08 - Infective myositis, other site <BAILEY Canchola Last Filed: 08/07/24 02:14> Patient Disposition: Acute Care Hospital <BAILEY Canchola Last Filed: 08/07/24 02:14> Condition: Stable <BAILEY Canchola Last Filed: 08/07/24 02:14> Prescriptions: No Action Dupixent Pen 300 mg/2 mL pen injector See Rx Instructions .ROUTE .COMPLEX Rx Instructions: as prescribed cyclobenzaprine 10 mg tablet 10 mg PO TID PRN (Reason: Muscle Spasm) meloxicam 15 mg tablet 15 mg PO HS paroxetine HCl 40 mg tablet 40 mg PO DAILY sulfamethoxazole-trimethoprim 800-160 mg tablet 1 tablet PO BID Rx Instructions: prescribed 06/01 cephalexin 500 mg tablet 500 mg PO Q6H Rx Instructions: prescribed 06/01 ziprasidone HCl 80 mg capsule 80 mg PO BID buspirone 10 mg tablet 15 mg PO BID gabapentin 300 mg capsule 300 mg PO TID budesonide-formoterol [Symbicort] 160-4.5 mcg/actuation HFA aerosol inhaler 2 puff INHALATION BID ergocalciferol (vitamin D2) 1,250 mcg (50,000 unit) capsule 1,250 mcg PO WEEKLY sennosides [senna] 8.6 mg tablet 8.6 mg PO HS PRN (Reason: Constipation) Rx Instructions: 2 tab potassium chloride [Klor-Con M20] 20 mEq tablet,ER particles/crystals 20 meq PO BID folic acid 1 mg tablet 1 mg PO DAILY lamotrigine 150 mg tablet 150 mg PO HS chlordiazepoxide HCl 25 mg capsule See Rx Instructions .ROUTE .COMPLEX Rx Instructions: as prescribed albuterol sulfate 90 mcg/actuation Hfa Aerosol Inhaler 2 puff INHALATION QID PRN (Reason: sob) albuterol sulfate 1.25 mg/3 mL Solution For Nebulization 1.25 mg INHALATION Q4H fluticasone propionate [Flonase] 50 mcg/actuation [place],Suspension 1 spray INTRANASAL BID Rx Instructions: administer into each nostril lidocaine 5 % adhesive patch,medicated budesonide-formoterol [Symbicort] 160-4.5 mcg/actuation HFA aerosol inhaler INHALATION <Akanksha Jackson PA-C - Last Filed: 08/07/24 02:14> Follow-up/Referrals: Sameer,Ran Ornelas MD [Primary Care Provider] - <Akanksha Jackson PA-C - Last Filed: 08/07/24 02:14>
[2024-08-05] MEDS: ACETAMINOPHEN 500 MG TABLET 1000 MG PO (20:56)
[2024-08-05] MEDS: traMADol HCL (*CRX) 50 MG TABLET PO (20:56)
[2024-08-05 21:08] LABS: Basophils Absolute Auto 0.1 K/mm3 (0.0-0.1); Basophils Percent Auto 0.4 % (0.2-1.2); Eosinophils Absolute Auto 0.2 K/mm3 (0-0.3); Eosinophils Percent Auto 1.2 % (0-4.4); Hematocrit 36.6 % (37.0-47.0); Hemoglobin 12.1 g/dL (12.0-15.0); Immature Granulocyte Percent A 0.6 % (0-0.5); Lymphocytes Absolute Auto 2.81 K/mm3 (0.9-3.2); Lymphocytes Percent Auto 15.9 % (18.3-44.2); Mean Corpuscular HGB Conc 33.1 g/dl (32-36); Mean Corpuscular Hemoglobin 31.8 pg (26-34); Mean Corpuscular Volume 96.1 fl (80-100); Mean Platelet Volume 9.3 fl (7.4-10.4); Monocytes Absolute Auto 2.2 K/mm3 (0.1-0.6); Monocytes Percent Auto 12.4 % (2.6-8.5); Neutrophils Absolute Auto 12.3 K/mm3 (1.3-6.7); Neutrophils Percent Auto 69.5 % (45.5-73.1); Platelet Count Result 474 k/mm3 (150-375); Red Blood Count 3.81 M/mm3 (4.2-5.4); Red Cell Distribution Width 15.2 % (11.5-14.5); White Blood Count 17.7 K/mm3 (4.5-10.0)
[2024-08-05] MEDS: NICOTINE (*PBKC) 21 MG PATCH 1 PATCH TRANSDERM ×2 (21:22→21:28)
[2024-08-05 21:32] LABS: Erythrocyte Sedimentation Rate 65 mm/hr (0-20)
[2024-08-05 21:44] LABS: Alanine Aminotransferase 15 U/L (6-35); Albumin Level 4.2 g/dL (3.5-5.1); Alkaline Phosphatase 90 U/L (38-126); Anion Gap 5 mmol/L (4-12); Aspartate Amino Transferase 30 U/L (14-36); Bilirubin,Total 0.6 mg/dL (0.2-1.3); Blood Urea Nitrogen 11 mg/dL (7-17); CRP 18.7 mg/dL (<1.0); Calcium 9.1 mg/dL (8.4-10.2); Carbon Dioxide 26 mmol/L (22-30); Chloride 102 mmol/L (98-107); Estimated CRCL calculation 98 ml/min; Estimated Glomerular Filt Rate > 60; Glucose 95 mg/dL (65-110); Potassium 4.2 mmol/L (3.4-5.0); Sodium 133 mmol/L (137-145)
[2024-08-05 21:45] LABS: Lactic Acid Reflex 0.7 mmol/L (0.7-2.0)
--- NOTE | 2024-08-05 22:49 | PC.NURSE ---
radiology contacted to create an imaging disc to place in transfer packet.
--- NOTE | 2024-08-05 23:20 | PC.NURSE ---
Pt moved to Room 10 and placed in hospital bed @ [id number]
--- NOTE | 2024-08-05 23:27 | PC.NURSE ---
Spoke with Ericka with [facility] transport triage at this time with patient information history and update. States that they will call the ER again in the morning with any bed updates.
[2024-08-05 23:55] VITALS: BP 120/75; PULSE 94; PULSE 96; RESP 14; O2SAT 98
[2024-08-06] VITALS (12 sets, daily range): BP systolic 105–146; BP diastolic 61–91; PULSE 59–117; RESP 13–20; TEMP 36.6–37.7; O2SAT 90–100
[2024-08-06] MEDS: PIPERACILLN/TAZ 3.375GM/NS50ML 3.375 GM/50 ML BAG IVPB ×4 (00:13→18:17)
[2024-08-06] MEDS: MORPHINE SULFATE (*CRX) 4 MG/ML INJ IV PUSH ×2 (00:28→04:25)
[2024-08-06] MEDS: ONDANSETRON INJ 4 MG/2 ML VIAL IV PUSH (00:29)
[2024-08-06] MEDS: VANCOMYCIN 1,250 MG/NS 250 ML 1,250 MG/250 ML BAG 166.67 MG IVPB (01:49)
[2024-08-06] MEDS: VANCOMYCIN 1,000 MG/NS 250 ML 1,000 MG/250 ML BAG 250 MG IVPB (03:29)
[2024-08-06 07:02] LABS: Estimated CRCL calculation 98 ml/min; Estimated Glomerular Filt Rate > 60
--- NOTE | 2024-08-06 07:04 | PC.NURSE ---
Report given to BENY Del Cid with no questions for me at this time.
[2024-08-06] MEDS: HYDROmorphone HCL INJ (*CRX) 1 MG/ML SYR 0.5 MG IV PUSH ×3 (08:13→20:48)
[2024-08-06] MEDS: PARoxetine 20 MG TABLET 40 MG PO (08:46)
[2024-08-06] MEDS: ZIPRASIDONE HCL 80 MG CAPSULE PO ×2 (08:46→18:18)
[2024-08-06] MEDS: busPIRone HCL 5 MG TABLET 15 MG PO ×2 (08:46→18:18)
[2024-08-06] MEDS: GABAPENTIN 300 MG CAPSULE PO ×3 (08:46→18:17)
[2024-08-06] MEDS: ACETAMINOPHEN 500 MG TABLET 1000 MG PO (08:46)
[2024-08-06] MEDS: CYCLOBENZAPRINE HCL 10 MG TABLET PO ×3 (08:47→18:18)
[2024-08-06] MEDS: FLUTICASONE PROPIONATE 0.05% NA SPR 16 GM BTL (*BKC) 1 SPRAY NASAL ×2 (08:47→18:18)
[2024-08-06] MEDS: LIDOCAINE 5% PATCH 1 PATCH TRANSDERM (08:47)
[2024-08-06] MEDS: NICOTINE (*PBKC) 21 MG PATCH 1 PATCH TRANSDERM (08:47)
--- NOTE | 2024-08-06 09:09 | PC.NURSE ---
0847 breakfast tray ordered for pt.
[2024-08-06] MEDS: FLUTICASONE/SALMETEROL 115-21 MCG INHALER 1 PUFF 2 PUFF INHALATION ×2 (09:14→20:52)
--- NOTE | 2024-08-06 09:30 | PC.NURSE ---
at this time I called [facility] transfer line for a status update on the bed. Talked with Tye. She stated we are still waiting on a bed on a surgical floor. They are full and working on discharges. The accepting Dr is Devante Ferrara.
--- NOTE | 2024-08-06 12:36 | PC.NURSE ---
Lunch tray ordered for pt.
[2024-08-06] MEDS: VANCOMYCIN 1,500 MG/NS 500 ML 1,500 MG/500 ML BAG 250 MG IVPB (14:47)
--- NOTE | 2024-08-06 17:04 | PC.NURSE ---
1704 ordered dinner tray for pt.
--- NOTE | 2024-08-06 19:16 | PC.NURSE ---
Report received from BENY Del Cid. Assumed care of patient at this time.
[2024-08-06] MEDS: lamoTRIgine 100 MG, lamoTRIgine 50 MG 150 MG PO (20:47)
[2024-08-06] MEDS: MELOXICAM 7.5 MG TABLET 15 MG PO (20:48)
--- NOTE | 2024-08-06 23:26 | PC.NURSE ---
[id number] Called [facility] spoke with Christina, gave update. Christina stated patient is still on waitlist.
[2024-08-07] VITALS (37 sets, daily range): BP systolic 111–150; BP diastolic 52–92; PULSE 72–104; RESP 13–30; TEMP 36.4–36.6; O2SAT 90–98
[2024-08-07] MEDS: PIPERACILLN/TAZ 3.375GM/NS50ML 3.375 GM/50 ML BAG IVPB ×2 (00:04→06:10)
[2024-08-07] MEDS: VANCOMYCIN 1,500 MG/NS 500 ML 1,500 MG/500 ML BAG 250 MG IVPB (02:02)
[2024-08-07] MEDS: HYDROmorphone HCL INJ (*CRX) 1 MG/ML SYR 0.5 MG IV PUSH ×2 (02:02→06:08)
[2024-08-07] MEDS: ACETAMINOPHEN 500 MG TABLET 1000 MG PO (05:20)
[2024-08-07 06:08] LABS: Estimated CRCL calculation 77 ml/min; Estimated Glomerular Filt Rate > 60
--- NOTE | 2024-08-07 08:07 | PC.NURSE ---
Patient ambulated to the restroom with steady gate
--- NOTE | 2024-08-07 08:23 | PC.NURSE ---
Breakfast tray ordered for patient
[2024-08-07] MEDS: GABAPENTIN 300 MG CAPSULE PO (09:17)
[2024-08-07] MEDS: PARoxetine 20 MG TABLET 40 MG PO (09:17)
[2024-08-07] MEDS: ZIPRASIDONE HCL 80 MG CAPSULE PO (09:17)
[2024-08-07] MEDS: busPIRone HCL 5 MG TABLET 15 MG PO (09:18)
== END 2024-08-07 08:55 | disposition short-term general hospital (02) ==
PROVIDERS: Emergency Provider Physician Assistant; PCP Family Medicine
DX: M00.9 Pyogenic arthritis, unspecified (principal); M60.08 Infective myositis, other site; Z79.899 Other long term (current) drug therapy
CPT/HCPCS: 36415; 71250; 74176; 80053; 82565; 83605; 85025; 85652; 86140; 87040; 87181; 96365; 96366; 96367; 96375; 96376; 99285; A9270; J1171; J2270; J2405; J2543; J3370